=== PATIENT | female | born 1985 | race Caucasian/White ===

== ENCOUNTER → 2019-12-09 | Emergency (ER) | payer OTHER ==
[~2019-12-09] VITALS: Ht 160 cm; Wt 113.4 kg
[~2019-12-09] MED LIST: ALDOMET250 MG; DOLOGEN CAPLET1 TAB PO; PRENATAL1 TAB
== END | disposition home or self-care (01) ==
LOC: ER 18:39
DX: B34.9 Viral infection, unspecified (principal)